=== PATIENT | female | born 2000 | race Caucasian/White ===

== ENCOUNTER 2018-09-17 11:30 | Emergency (ER) | payer OTHER, BC ==
[2018-09-17 11:36] VITALS: BP 119/74
--- NOTE | 2018-09-17 12:35 | ER Document Report ---
ED Medical Screen (RME) - General Chief Complaint: Abdominal Cramping Stated Complaint: ABDOMINAL PAIN, BACK PAIN Time Seen by Provider: 09/17/18 12:14 Mode of Arrival: Ambulatory Information source: Patient TRAVEL OUTSIDE OF THE [place] IN LAST 30 DAYS: No - HPI Patient complains to provider of: abdominal pain Onset: Other - 18-year-old female presents for evaluation of some cramping pelvic pain in the setting of having a previous of unknown location with 4 days prior to undergoing hCG chesting at the level of approximately 160 at that time. She notes that they did an ultrasound at that time and were unable to see an intrauterine . Denies any bleeding or other pain no trauma to the abdomen no fevers no chills no diarrhea no constipation no dysuria - Related Data Allergies/Adverse Reactions: No Known Allergies Allergy (Unverified 09/17/18 11:33) Past Medical History - General Information source: Patient - Social History Chew tobacco use (# tins/day): No Frequency of alcohol use: Occasional Drug Abuse: None Pulmonary Medical History: Reports: Hx Asthma Renal/ Medical History: Denies: Hx Peritoneal Dialysis Review of Systems - Review of Systems -: Yes All other systems reviewed and negative Physical Exam - Vital signs Vitals: Temp Pulse Resp BP Pulse Ox 98.0 F 76 14 119/74 96 09/17/18 11:34 09/17/18 11:34 09/17/18 11:34 09/17/18 11:34 09/17/18 11:34 - General General appearance: Appears well, Alert - HEENT Head: Normocephalic, Atraumatic Eyes: Normal Pupils: PERRL - Respiratory Respiratory status: No respiratory distress Chest status: Nontender Breath sounds: Normal Chest palpation: Normal - Cardiovascular Rhythm: Regular Heart sounds: Normal auscultation Murmur: No - Abdominal Inspection: Normal Distension: No distension Bowel sounds: Normal Tenderness: Nontender Organomegaly: No organomegaly - Back Back: Normal, Nontender - Extremities General upper extremity: Normal inspection, Nontender, Normal color, Normal ROM , Normal temperature General lower extremity: Normal inspection, Nontender, Normal color, Normal ROM , Normal temperature, Normal weight bearing. No: Alexi's sign - Neurological Neuro grossly intact: Yes Cognition: Normal Orientation: AAOx4 Rosales Coma Scale Eye Opening: Spontaneous Rosales Coma Scale Verbal: Oriented Rosales Coma Scale Motor: Obeys Commands Eva Coma Scale Total: 15 Speech: Normal Motor strength normal: LUE, RUE, LLE, RLE Sensory: Normal - Psychological Associated symptoms: Normal affect, Normal mood Course - Re-evaluation Re-evalutation: 09/17/18 12:34 Patient with a very low positive hCG on with an unidentified IUP. Was 164. With some cramping and vaginal bleeding thereafter, will obtain hCG level and reassess workup. HCG level is downtrending today is 50 the patient is well-appearing hemodynamically stable with no obvious IUP previously demonstrated in the [facility] downtrending hCG it is likely that she has a complete at this time. 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 She is encouraged to return in case of any worsening bleeding fevers or chills. - Vital Signs Vital signs: Temp Pulse Resp BP Pulse Ox 98.0 F 76 14 119/74 96 09/17/18 11:34 09/17/18 11:34 09/17/18 11:34 09/17/18 11:34 09/17/18 11:34 - Laboratory Laboratory results interpreted by me: 09/17/18 12:51 Beta HCG, Quant 51.85 H Doctor's Discharge - Discharge Clinical Impression: Miscarriage Condition: Good Disposition: HOME, SELF-CARE Instructions: Miscarriage ([facility]) Additional Instructions: Your seen today in the emergency department for your abdominal pain and cramping. He had an evaluation including a physical exam and a check of your hCG level. Your hCG level is going down. Today it is 51. I do not believe that you have a developing , because 5 days ago your hCG level was 164 I think that you likely had a miscarriage. You should still call your OB doctor about your visit today. Continue to use Motrin and Tylenol for your cramps as needed. Return for worsening bleeding, if you are unable to eat or drink or if you have intensifying pain. Referrals: EVA SORENSON MD [Primary Care Provider] - Follow up as needed
== END 2018-09-17 14:27 | disposition home or self-care (01) ==
LOC: ER 11:30
DX: O03.9 Complete or unspecified spontaneous abortion without complication (principal); R10.9 Unspecified abdominal pain; M54.9 Dorsalgia, unspecified; R10.2 Pelvic and perineal pain
CPT/HCPCS: 36415; 84702; 99284